=== PATIENT | female | born 1975 | race Caucasian/White ===

== ENCOUNTER 2024-02-15 12:13 | Emergency (ER) | payer OTHER, SELFPAY ==
[2024-02-15 12:18] VITALS: BP 191/106
[2024-02-15 12:55] VITALS: BP 150/95
--- NOTE | 2024-02-15 13:07 | ED.GENMED ---
History of Present Illness
General
Chief Complaint: Swelling
Source: patient
Exam Limitations: none
Time Seen by Provider: 02/15/24 12:55
Travel History
Have you had any contact with someone who has COVID-19?: No
Do you have any symptoms of coronavirus? Fever > 100 degrees, chills, cough, shortness of breath, sore throat, loss of taste or smell, muscle aches, or headache?: No
History of Present Illness
History of Present Illness:
48-year-old female presents primarily with left arm numbness and feels like it slightly swollen. Started earlier today. Still having some slight numbness. No facial numbness some dizziness. Also her watch said she was in atrial fibrillation for
a few minutes yesterday no history of similar episodes
Past History
Past History
ED Past Medical History: Psychiatric (Anxiety, Depression) and Other (ADHD)
ED Past Surgical History: (X 2)
Social History
Tobacco: Smoker
Alcohol: None
Drug: None
Personal: Single
Living: with family
Employment: Employed
Family History
Family History: Hypertension
Review of Systems
Review of Systems
All Other Systems: Not applicable
Constitutional: Denies fever
Respiratory: Reports no symptoms
Cardiac: Denies chest pain or syncope
Phy Exam
Physical Exam
Physical Exam:
GENERAL: Alert and oriented in no apparent distress
EYE: Orbits normal.
NECK: Supple, no thyroid palpable. No carotid bruits
ENT: Pharynx without erythema
CARDIAC: Regular rate and rhythm without any obvious murmurs.
LUNGS: Clear breath sounds,normal
ABDOMEN: Soft, without focal tenderness or distention
NEUROLOGICAL: Alert and oriented , cranial nerves II through XII intact. Speech normal. [id number] normal. No drift. Lower extremity strength normal. Light touch intact.
SKIN: Warm and dry, no rash or lesion, no discoloration, skin intact.
MUSCULOSKELETAL: No edema,no deformity.Good color
PSYCH: Normal and appropriate interaction.
Scores
Heart Failure Risk
Heart Failure Risk Score: Not Applicable
Course
Orders/Labs/Results
Orders:
Orders
02/15/24 12:27
CT Head W/o Iv Contrast Urgent
Comment:
Reason For Exam: left arm numbness and decreased sensation
02/15/24 12:28
ECG [Electrocardiogram (*1)] Urgent
Reason for Study: Fatigue / Weakness
EKG- Treatment ONCE
02/15/24 13:06
Cardiac Monitoring- Treatment ONCE
IV Insert/Care/Rem.- Treatment PRN
Pulse Ox/cont/shift [RESP] Stat
Quantity: 1
02/15/24 13:09
Basic Metabolic Panel Urgent
Complete Blood Count/With Diff Urgent
TSH Reflex To Free T4 Urgent
US Periph Venous UPPER Ext LT Urgent
Comment:
Reason For Exam: Subjective paresthesias/swelling
02/15/24 13:34
MR Brain Without Contrast Urgent
Comment:
Reason For Exam: Left arm paresthesias/transient confusion/possible
OK for patient to be off Cardiac Monitoring for MRI: Yes
Recent pill cam endoscopy?: No
02/15/24 17:35
Lorazepam [Ativan] 2 mg .ROUTE .STK-MED ONE
02/15/24 17:45
Lorazepam [Ativan] 1 mg IV NOW STA
Abnormal Lab Results
02/15/24
13:09
RBC 3.91 L 10^6/uL
(4.20-5.40)
Hgb 11.6 L g/dL
(12.0-16.0)
Hct 33.5 L %
(37.0-47.0)
Sodium 134 L mmol/L
(135-145)
02/15/24 13:09
02/15/24 13:09
Vital Signs
Initial and Last Documented VS:
Initial Vital Signs
Temp Pulse Resp BP Pulse Ox
98.1 F 84 18 191/106 99
02/15/24 12:18 02/15/24 12:18 02/15/24 12:18 02/15/24 12:18 02/15/24 12:18
Last Documented Vital Signs
Temp Pulse Resp BP Pulse Ox
98.1 F 78 19 150/95 98
02/15/24 12:18 02/15/24 17:00 02/15/24 17:00 02/15/24 12:55 02/15/24 17:00
MDM/Problems Addressed
Differential Diagnosis Includes:
Patient's exam is within normal limits. Head CT negative. No clinical findings to support acute stroke alert although some subjective paresthesias to the left arm. With the possibility of atrial fibrillation, embolic event has to at least be
considered. Will discuss with neurology
*Radiology
Radiology exam reviewed: radiology read reviewed (Chiari I malformation. Narrowing C3-C4 with possible mild spinal stenosis)
*Pulse Oximetry
Patient hypoxic: no
*EKG
Interpreted by ED Provider?: Yes
Comparison EKG: no changes
Heart Rate: 78
Rate: normal
Rhythm: sinus
Pickrell: normal axis
Interval: normal interval
QRS Pattern: normal QRS
Ischemia: no ischemia
*Executive Vice President Interpretation
Rate: normal
Interpretation: normal
Heart Rate: 77
Rhythm: sinus
*Critical Care Note
Total Time (30-74mins, 75-104mins- exclusive of procedures): Not Applicable
Data Reviewed
Review of Other/Old Records Reveals: Labs, Records and Testing
Update Note
Update Note:
Patient has remained medically stable. Neurologic exam unremarkable. No acute findings on MRI. This report was reviewed with neurosurgery for follow-up. Ultrasound of the arm negative. No evidence of atrial fibrillation here however does
warrant cardiac follow-up
ED Attending Note
-
Portions of this chart may have been created with voice recognition software.� Occasional wrong word or��sound alike� substitutions may have occurred due to the inherent limitations of voice recognition software.
Discharge Plan
Departure
Patient Disposition: Home (Routine Discharge)
Date of Disposition: 02/15/24
Time of Disposition: 19:31
Patient with high blood pressure during this ER visit?: Yes
Discharge Problem:
Left arm paresthesias, Possible paroxysmal atrial fibrillation, Incidental Chiari malformation, C3-C4 degenerative changes, C3-C4 mild spinal stenosis
Instructions: Paresthesia (DC), BLOOD PRESSURE
Prescriptions:
No Action
dextroamphetamine-amphetamine [Adderall] 10 mg Tablet
10 mg PO BID
escitalopram oxalate [Lexapro] 10 mg Tablet
10 mg PO DAILY
Patient Comments:
02/15/2024, prescribed for patient to take 1.5 tablets (15 mg) daily; however, pt. forgets to take the additional half tablet often.
ibuprofen 200 mg Tablet
400 - 600 mg PO BIDPRN PRN (Reason: mild pain)
aspirin 81 mg Tablet,Chewable
162 mg PO Q4HPRN PRN (Reason: leg pain)
Referrals:
Nico Gibson MD [Active] - Follow up in 5-7 days
Felicitas Valentine MD [Family Provider] -
Ksenia Knight MD [Active] -
Activity Restrictions/Additional Instructions:
Follow-up closely with your primary physician
Call cardiology tomorrow for close follow-up for your possibility of paroxysmal atrial fibrillation
Call and follow-up with neurosurgery based on the MRI report we discussed
Return sooner with any increased numbness weakness gait issues cognitive issues that progress or any other concerning symptoms
Interventions
Interventions:
*Risk Screen - Suicide Last Done: 02/15/24 12:18
*General Assessment Last Done: 02/15/24 12:18
*Neglect/Abuse Screening Last Done: 02/15/24 12:18
*ED COVID-19 Vaccine History Last Done: 02/15/24 13:04
ED- Cardiac Assessment Last Done: 02/15/24 13:03
ED- Pulmonary Assessment Last Done: 02/15/24 13:04
ED-Skin Assessment Last Done: 02/15/24 13:04
Discharge Date and Time
Print Language: HEBREW
[2024-02-15 13:17] LABS: % Basophils 0.3 % (0-2); % Immature Granulocytes 0.3 % (0-0.5); % Lymphocytes 29.8 % (20.5-51.1); % Monocytes 7.3 % (1.7-9.3); % Neutrophils 62.3 % (42.2-75.2); Absolute Lymphocytes 2.1 10^3/uL (1.2-3.4); Absolute Monocytes 0.5 10^3/uL (0.1-0.6); Absolute Neutrophils 4.4 10^3/uL (1.4-6.5); Hematocrit 33.5 % (37.0-47.0); Hemoglobin 11.6 g/dL (12.0-16.0); Mean Corp Hgb Conc. 34.6 g/dL (33.0-37.0); Mean Corpuscular Hgb 29.7 pg (27.0-31.0); Mean Corpuscular Volume 85.7 fL (81.0-99.0); Mean Platelet Volume 9.2 fL (7.4-10.4); Nucleated Red Blood Cells % 0 %; Platelet Count 293 10^3/uL (130-400); Red Blood Cell Count 3.91 10^6/uL (4.20-5.40); Red Cell Dist. Width 13.1 % (11.5-14.5)
[2024-02-15 13:35] LABS: Blood Urea Nitrogen 14 mg/dl (7-17); Calcium 9.5 mg/dl (8.4-10.2); Carbon Dioxide 23 mmol/L (22-30); Chloride 106 mmol/L (98-107); Glucose 93 mg/dl (70-99); Potassium 3.9 mmol/L (3.5-5.1); Sodium 134 mmol/L (135-145); eGFR > 60.00
[2024-02-15 14:11] LABS: TSH Reflex To Free T4 0.67 uIU/ml (0.47-4.68)
[2024-02-15] MEDS: ATIVAN 1 MG IV (18:41)
== END 2024-02-15 19:55 | disposition home or self-care (01) ==
LOC: EMR 12:13
PROVIDERS: EMERGENCY PHYSICIAN Emergency Medicine; FAMILY PHYSICIAN Emergency Medicine
DX: R20.2 Paresthesia of skin (principal); M48.02 Spinal stenosis, cervical region; I48.91 Unspecified atrial fibrillation; F41.8 Other specified anxiety disorders; F90.9 Attention-deficit hyperactivity disorder, unspecified type; F17.200 Nicotine dependence, unspecified, uncomplicated; Z82.49 Family history of ischemic heart disease and other diseases of the circulatory system
CPT/HCPCS: 99284; 96374; 70450; 70551; 80048; 84443; 85025; 93005; 93971

== ENCOUNTER → 2024-04-05 15:00 | Outpatient (REF) | payer OTHER, SELFPAY | LOC: PAVMRI 15:00 | PROVIDERS: ATTENDING PHYSICIAN Family Medicine | DX: R20.0 Anesthesia of skin (principal); R20.2 Paresthesia of skin; M48.02 Spinal stenosis, cervical region; M25.511 Pain in right shoulder | CPT/HCPCS: 72141; 73221 ==

== ENCOUNTER → 2024-05-10 12:21 | Outpatient (REF) | payer OTHER, SELFPAY | LOC: RAD 12:21 | PROVIDERS: ATTENDING PHYSICIAN Internal Medicine Cardiovascular Disease; FAMILY PHYSICIAN Emergency Medicine | DX: R06.2 Wheezing (principal); I10 Essential (primary) hypertension | CPT/HCPCS: 93922; 93925 ==

== ENCOUNTER 2025-03-23 21:31 | Emergency (ER) | payer OTHER, SELFPAY ==
[2025-03-23 21:33] VITALS: BP 172/103
[2025-03-23 22:30] VITALS: BP 160/93
--- NOTE | 2025-03-24 01:58 | ED.GENMED ---
History of Present Illness
General
Chief Complaint: Wound Check/Suture Removal
Source: patient
Exam Limitations: none
Time Seen by Provider: 03/23/25 21:55
Nursing documentation reviewed up to this point in time: agreed with
History of Present Illness
History of Present Illness:
Patient states she had a cyst removed from posterior right ear yesterday. Today she attempted to change the dressing but she couold not remove the cotton placed over wound. Brought self to ED for eval.
Past History
Past History
ED Past Medical History: Psychiatric (Anxiety, Depression) and Other (ADHD)
ED Past Surgical History: (X 2)
Social History
Tobacco: Smoker
Alcohol: None
Drug: None
Personal: Single
Living: with family
Employment: Employed
Family History
Family History: Hypertension
Review of Systems
Review of Systems
Allergies reviewed?: Yes
All Other Systems: ROS reviewed and negative except as documented in HPI and ROS
Constitutional: Reports no symptoms
Musculoskeletal: Reports no symptoms
Skin: Reports other (surgical incision right posterior ear. Unable to remove piece of cotton)
Neurological: Reports no symptoms
Psychiatric: Reports no symptoms
Phy Exam
General Physical Exam
General Presentation: well appearing and no apparent distress
General age: appears stated age
General Skin: warm and dry
General Habitus: normal
General Mental: alert
Musculoskeletal Exam
Musculoskeletal Exam: full ROM
Skin Exam
Skin Exam: normal color, warm/dry, no rash and other (Surgical incision rght posterior ear. Cotton soaked with NSS and was removed by me. 2 sutures are intact. NO evidence of infection.)
Psychiatric Exam
Psychiatric Exam: normal mood/affect
Course
Vital Signs
Initial and Last Documented VS:
Initial Vital Signs
Temp Pulse Resp BP Pulse Ox
98.2 F 94 18 172/103 100
03/23/25 21:33 03/23/25 21:33 03/23/25 21:33 03/23/25 21:33 03/23/25 21:33
Last Documented Vital Signs
Temp Pulse Resp BP Pulse Ox
98.2 F 80 18 160/93 100
03/23/25 21:33 03/23/25 22:30 03/23/25 22:30 03/23/25 22:30 03/23/25 22:30
*Critical Care Note
Total Time (30-74mins, 75-104mins- exclusive of procedures): Not Applicable
ED Attending Note
-
Portions of this chart may have been created with voice recognition software.� Occasional wrong word or��sound alike� substitutions may have occurred due to the inherent limitations of voice recognition software.
Discharge Plan
Departure
Patient Disposition: Home (Routine Discharge)
Date of Disposition: 03/23/25
Time of Disposition: 22:08
Patient with high blood pressure during this ER visit?: No
Condition: Good
Covid-19: Not Applicable
Discharge Problem:
Visit for wound check
Instructions: Stitches and dragan
Prescriptions:
No Action
dextroamphetamine-amphetamine [Adderall] 10 mg Tablet
10 mg PO BID
escitalopram oxalate [Lexapro] 10 mg Tablet
10 mg PO DAILY
Patient Comments:
02/15/2024, prescribed for patient to take 1.5 tablets (15 mg) daily; however, pt. forgets to take the additional half tablet often.
ibuprofen 200 mg Tablet
400 - 600 mg PO BIDPRN PRN (Reason: mild pain)
aspirin 81 mg Tablet,Chewable
162 mg PO Q4HPRN PRN (Reason: leg pain)
Referrals:
Felicitas Valentine MD [Family Provider, Internal Medicine]
Activity Restrictions/Additional Instructions:
Follow up with your surgeon as scheduled.
Interventions
Interventions:
*Risk Screen - Suicide Last Done: 03/23/25 21:33
*General Assessment Last Done: 03/23/25 21:43
*Neglect/Abuse Screening Last Done: 03/23/25 21:33
*ED- Fall Risk Assessment Last Done: 03/23/25 21:43
*ED COVID-19 Vaccine History Last Done: 03/23/25 21:43
*Nursing Disposition Last Done: 03/23/25 22:04
ED-Skin Assessment Last Done: 03/23/25 21:43
Discharge Date and Time
Discharge Date/Time: 03/23/25 22:15
Print Language: MALDIVIAN
== END 2025-03-23 22:15 | disposition home or self-care (01) ==
LOC: EMR 21:31
PROVIDERS: EMERGENCY PHYSICIAN Student in an Organized Health Care Education/Training Program; FAMILY PHYSICIAN Emergency Medicine
DX: Z48.00 Encounter for change or removal of nonsurgical wound dressing (principal); F41.8 Other specified anxiety disorders; F90.9 Attention-deficit hyperactivity disorder, unspecified type; F17.200 Nicotine dependence, unspecified, uncomplicated; Z82.49 Family history of ischemic heart disease and other diseases of the circulatory system
CPT/HCPCS: 99281

== ENCOUNTER 2025-10-04 19:32 | Emergency (ER) | payer OTHER, SELFPAY ==
[2025-10-04 19:39] VITALS: BP 130/109
[2025-10-04 20:23] VITALS: BP 140/80
[2025-10-04] MEDS: TORADOL 30 MG IV (20:57)
[2025-10-04] MEDS: NSS 1000 IV (20:58)
[2025-10-04] MEDS: ZOFRAN 4 MG IV (20:58)
[2025-10-04 20:59] LABS: Hematocrit 38.0 % (37.0-47.0); Hemoglobin 12.8 g/dL (12.0-16.0); Mean Corp Hgb Conc. 33.7 g/dL (33.0-37.0); Mean Corpuscular Volume 87.0 fL (81.0-99.0); Nucleated Red Blood Cells % 0 %; Platelet Count 329 10^3/uL (130-400); Red Cell Dist. Width 13.0 % (11.5-14.5)
[2025-10-04 21:00] VITALS: BP 140/81
--- NOTE | 2025-10-04 21:04 | ED.GENMED ---
History of Present Illness
General
Chief Complaint: Abdominal Symptoms
Source: patient
Time Seen by Provider: 10/04/25 20:30
History of Present Illness
History of Present Illness:
50-year-old female presenting to the ER for evaluation of a relative sudden onset of nausea vomiting and diarrhea that began this afternoon around 230, symptoms persisted and accompanied with abdominal cramping which is what prompted her to come to
the ER. Tactile fever reported. No known sick contacts, recent travel or recent antibiotics. Patient did not attempt any medications prior to arrival.
Past History
Past History
ED Past Medical History: Psychiatric (Anxiety, Depression) and Other (ADHD)
ED Past Surgical History: (X 2)
Social History
Tobacco: Smoker
Alcohol: None
Drug: None
Personal: Single
Living: with family
Employment: Employed
Family History
Family History: Hypertension
Review of Systems
Review of Systems
All Other Systems: ROS reviewed and negative except as documented in HPI and ROS
Phy Exam
Physical Exam
Physical Exam:
GENERAL: Alert , ill-appearing but nontoxic
EYE: clear conjunctiva b/l
HEAD: NCAT
ENT: o/p clr, mmm.
CARDIAC: Regular rate and rhythm .
LUNGS: Clear breath sounds bilaterally, no acute respiratory distress, no wheezes/rales/rhonchi
ABDOMEN: Soft, without focal tenderness, no r/g, no cvat
NEUROLOGICAL: Alert and oriented
SKIN: Warm and dry, skin intact.
MUSCULOSKELETAL: No edema, well perfused.
PSYCH: Normal and appropriate interaction.
Scores
Heart Failure Risk
Heart Failure Risk Score: Not Applicable
Heart Score for Chest Pain Patients
STEMI patient?: Not applicable
Withdrawal Assessment of Alcohol
Withdrawal Assessment Completed?: Not applicable
Sepsis
Sepsis Screening
Sepsis Assessment: Sepsis Ruled Out
Sepsis Screen
Sepsis Screen: Sepsis Ruled Out
Date: 10/04/25
Time: 22:36
Course
Orders/Labs/Results
Orders:
Orders
10/04/25 19:41
Test Result ONCE
10/04/25 20:38
0.9% Sodium Chloride 1000 ml [Nss] 1,000 ml IV BOLUS
Ketorolac [Toradol] 30 mg IV NOW STA
Ondansetron Injectable [Zofran] 4 mg IV NOW STA
10/04/25 20:52
Basic Metabolic Panel Urgent
Complete Blood Count/With Diff Urgent
HCG, Serum Qualitative Screen Urgent
Lipase Urgent
Abnormal Lab Results
10/04/25
20:52
WBC 12.4 H 10^3/uL
(4.8-10.8)
Absolute Neuts (auto) 11.7 H 10^3/uL
(1.4-6.5)
Absolute Lymphs (auto) 0.4 L 10^3/uL
(1.2-3.4)
Neutrophils % 93.9 H %
(42.2-75.2)
Lymphocytes % 3.3 L %
(20.5-51.1)
Glucose 126 H mg/dl
(70-99)
10/04/25 20:52
10/04/25 20:52
Vital Signs
Initial and Last Documented VS:
Initial Vital Signs
Temp Pulse Resp BP Pulse Ox
97.5 F 100 24 130/109 96
10/04/25 19:39 10/04/25 19:39 10/04/25 19:39 10/04/25 19:39 10/04/25 19:39
Last Documented Vital Signs
Temp Pulse Resp BP Pulse Ox
97.9 F 81 17 134/79 97
10/04/25 22:02 10/04/25 22:00 10/04/25 22:00 10/04/25 22:00 10/04/25 22:00
MDM/Problems Addressed
Differential Diagnosis Includes:
Food borne illness
Gastroenteritis
Dehydration
Electrolyte imbalance
Colitis
Less concern for surgical abdomen
MDM/Problems Addressed:
50-year-old female presenting to the ER for evaluation of nausea vomiting and diarrhea with abdominal cramping, relative sudden onset this afternoon. Will treat here with Zofran, Toradol and fluids. Disposition pending
*Pulse Oximetry
SaO2: 96
Oxygen Mode of Delivery: Room air
Patient hypoxic: no
*Critical Care Note
Total Time (30-74mins, 75-104mins- exclusive of procedures): Not Applicable
Patient Management
Escalation/DeEscalation of care consider admission/obs:
Patient reporting significant relief and feels comfortable being discharged home. Prescription for Zofran sent to pharmacy. Aware of return precautions. Stable for discharge.
ED Attending Note
-
Portions of this chart may have been created with voice recognition software.� Occasional wrong word or��sound alike� substitutions may have occurred due to the inherent limitations of voice recognition software.
Discharge Plan
Departure
Patient Disposition: Home (Routine Discharge)
Date of Disposition: 10/04/25
Time of Disposition: 22:19
Patient with high blood pressure during this ER visit?: No
Discharge Problem:
Nausea vomiting and diarrhea
Instructions: Nausea and Vomiting, Adult (DC)
Prescriptions:
New
ondansetron 4 mg tablet,disintegrating
4 mg PO TIDPRN PRN (Reason: nausea/vomiting) Qty: 10 0RF
No Action
dextroamphetamine-amphetamine [Adderall] 10 mg Tablet
10 mg PO BID
escitalopram oxalate [Lexapro] 10 mg Tablet
10 mg PO DAILY
Patient Comments:
02/15/2024, prescribed for patient to take 1.5 tablets (15 mg) daily; however, pt. forgets to take the additional half tablet often.
ibuprofen 200 mg Tablet
400 - 600 mg PO BIDPRN PRN (Reason: mild pain)
aspirin 81 mg Tablet,Chewable
162 mg PO Q4HPRN PRN (Reason: leg pain)
Referrals:
[facility], [Other]
Felicitas Valentine MD [Family Provider, Internal Medicine]
Stand Alone Forms: Return to Work
Interventions
Interventions:
*General Assessment Last Done: 10/04/25 22:03
*Neglect/Abuse Screening Last Done: 10/04/25 19:53
*ED COVID-19 Vaccine History Last Done: 10/04/25 22:03
*ED Influenza Vaccine History Last Done: 10/04/25 22:03
[facility] Risk Assessment Tool Last Done: 10/04/25 22:01
*Risk Screen - Suicide (C-SSRS) Last Done: 10/04/25 19:39
EU-Xepilk-Wjiaobuana Assessment Last Done: 10/04/25 22:03
Discharge Date and Time
Print Language: VENEZUELAN
[2025-10-04 21:15] LABS: Blood Urea Nitrogen 15 mg/dl (7-17); Calcium 9.3 mg/dl (8.4-10.2); Carbon Dioxide 23 mmol/L (22-30); Chloride 106 mmol/L (98-107); Glucose 126 mg/dl (70-99); Lipase 48 U/L (23-300); Sodium 135 mmol/L (135-145); eGFR > 60.00
[2025-10-04 21:27] LABS: HCG, Serum Qualitative Screen Negative
[2025-10-04 22:00] VITALS: BP 134/79
[2025-10-04 22:26] VITALS: BP 117/77
== END 2025-10-04 22:51 | disposition home or self-care (01) ==
LOC: EMR 19:32
PROVIDERS: EMERGENCY PHYSICIAN Student in an Organized Health Care Education/Training Program; FAMILY PHYSICIAN Emergency Medicine
DX: R11.2 Nausea with vomiting, unspecified (principal); R19.7 Diarrhea, unspecified; F41.9 Anxiety disorder, unspecified; F32.A Depression, unspecified; F90.9 Attention-deficit hyperactivity disorder, unspecified type; F17.200 Nicotine dependence, unspecified, uncomplicated
CPT/HCPCS: 99284; 96374; 96375; 96361; 80048; 83690; 84703; 85025

== ENCOUNTER 2025-10-08 10:46 | Emergency (ER) | payer OTHER, SELFPAY ==
[2025-10-08 10:53] VITALS: BP 157/92
--- NOTE | 2025-10-08 11:26 | ED.GENMED ---
History of Present Illness
General
Chief Complaint: DVT/Possible Blood Clot
Source: patient
Exam Limitations: none
Time Seen by Provider: 10/08/25 11:14
Nursing documentation reviewed up to this point in time: agreed with
History of Present Illness
History of Present Illness:
Patient is a 50-year-old healthy female who presents to the emergency department for evaluation of left calf pain. Patient states she woke up this morning and noticed pain in her left Medial proximal calf. She reports significant tenderness when
touching the affected area as well as pain with weightbearing. She denies any history of similar symptoms. No chest pain, shortness of breath, fever. No recent falls or trauma.
Patient was concerned as her family has a significant history of blood clots. She has not had any diagnosed blood clots in the past.
resolved.
No recent travel or recent surgeries. She states she was recently seen in the emergency department on for a suspected viral gastroenteritis which has resolved.
Past History
Past History
ED Past Medical History: Psychiatric (Anxiety, Depression) and Other (ADHD)
ED Past Surgical History: (X 2)
Social History
Tobacco: Smoker
Alcohol: None
Drug: None
Personal: Single
Living: with family
Employment: Employed
Family History
Family History: Hypertension
Review of Systems
Review of Systems
Allergies reviewed?: Yes
All Other Systems: ROS reviewed and negative except as documented in HPI and ROS
Phy Exam
Physical Exam
Physical Exam:
Vitals: Hypertensive, otherwise vital signs stable. Afebrile
General: Patient is well appearing, no acute distress
Skin: Warm and dry, no rashes or lesions
Head: Normocephalic, atraumatic
Throat: Protecting airway
Neck: Normal ROM, no cervical spine tenderness
Cardiac: Regular rate
Pulm: No apparent respiratory distress
Abdomen: Nondistended
Extremities: Focal area of tenderness in the left medial proximal calf with palpable cord. No overlying skin changes including erythema, warmth, or obvious swelling. No bony tenderness of left lower extremity. Negative Homans' sign. 2+ palpable
DP/PT pulse in left lower extremity.
Neuro: Grossly intact
Psychiatric: Normal affect.
Course
Orders/Labs/Results
Orders:
Orders
10/08/25 11:15
US Periph Venous LOWER Ext RT Urgent
Comment:
Reason For Exam: pain, edema
10/08/25 11:23
Acetaminophen [Tylenol] 1,000 mg PO NOW STA
Vital Signs
Initial and Last Documented VS:
Initial Vital Signs
Temp Pulse Resp BP Pulse Ox
98.5 F 98 20 157/92 100
10/08/25 10:53 10/08/25 10:53 10/08/25 10:53 10/08/25 10:53 10/08/25 10:53
Last Documented Vital Signs
Temp Pulse Resp BP Pulse Ox
98.5 F 89 16 136/89 100
10/08/25 10:53 10/08/25 13:12 10/08/25 13:12 10/08/25 13:12 10/08/25 11:31
MDM/Problems Addressed
Differential Diagnosis Includes:
Not limited to: Muscular strain, hematoma, DVT, thrombophlebitis, etc.
MDM/Problems Addressed:
56-year-old female 1 day of pain in right proximal calf. No known injury or trauma. No fevers, chest pain, or shortness of breath. Vitals and physical exam as above. There is an obvious area of focal tenderness in the right proximal medial calf
with palpable cord. No overlying erythema or warmth of skin. No pitting edema of lower extremity. Will give Tylenol and obtain ultrasound to rule out DVT.
Update: Ultrasound shows findings of superficial thrombophlebitis with thrombus and varicose veins branching off great saphenous vein distal thigh and proximal/mid calf. This is at area of tenderness. No evidence of DVT. No overlying infectious
process. Advised compression, elevation, NSAIDs for pain. Recommended repeat ultrasound in 1-2 weeks with PCP to ensure no extension of clot. Otherwise stable for discharge home. Return precautions discussed.
Chronic conditions affecting care:
N/A
Acute Exacerbation and/or Progression of Chronic Illness:
N/A
*Radiology
Radiology exam reviewed: radiology read reviewed
*Pulse Oximetry
SaO2: 100
Oxygen Mode of Delivery: Room air
Patient hypoxic: no
*EKG
Interpreted by ED Provider?: NA
*Food And Beverage Server Interpretation
Rate: Food And Beverage Server- N/A
*Critical Care Note
Total Time (30-74mins, 75-104mins- exclusive of procedures): Not Applicable
ED Attending Note
-
Portions of this chart may have been created with voice recognition software.� Occasional wrong word or��sound alike� substitutions may have occurred due to the inherent limitations of voice recognition software.
Discharge Plan
Departure
Patient Disposition: Home (Routine Discharge)
Date of Disposition: 10/08/25
Time of Disposition: 13:52
Patient with high blood pressure during this ER visit?: Yes
Condition: Good
Discharge Problem:
Superficial thrombophlebitis of right leg
Instructions: Superficial vein phlebitis and thrombosis, BLOOD PRESSURE
Prescriptions:
No Action
dextroamphetamine-amphetamine [Adderall] 10 mg Tablet
10 mg PO BID
escitalopram oxalate [Lexapro] 10 mg Tablet
10 mg PO DAILY
Patient Comments:
02/15/2024, prescribed for patient to take 1.5 tablets (15 mg) daily; however, pt. forgets to take the additional half tablet often.
ibuprofen 200 mg Tablet
400 - 600 mg PO BIDPRN PRN (Reason: mild pain)
aspirin 81 mg Tablet,Chewable
162 mg PO Q4HPRN PRN (Reason: leg pain)
ondansetron 4 mg tablet,disintegrating
4 mg PO TIDPRN PRN (Reason: nausea/vomiting) Qty: 10 0RF
Referrals:
Felicitas Valentine MD [Family Provider, Internal Medicine] - Follow up in 1 week
Activity Restrictions/Additional Instructions:
RETURN TO THE EMERGENCY DEPARTMENT WITH ANY FEVER, WORSENING REDNESS, WARMTH, OR SWELLING OF RIGHT LOWER LEG, INTRACTABLE PAIN, CHEST PAIN OR SHORTNESS OF BREATH, OR ANY OTHER CONCERNS
- As discussed�your ultrasound showed no evidence of a DVT however did note superficial thrombophlebitis in your right calf.
- Please continue to elevate your right lower leg, apply warm compresses and wear compression stockings. You can take Motrin at home for pain
- Please follow-up with your primary care provider in 7-10 days for repeat ultrasound to ensure no worsening of superficial clots or extension to deep venous system.
Monitor your symptoms closely and return to the emergency department with any acute worsening/new symptoms or any other concerns
Interventions
Interventions:
*General Assessment Last Done: 10/08/25 10:53
*Neglect/Abuse Screening Last Done: 10/08/25 10:53
*ED COVID-19 Vaccine History Last Done: 10/08/25 12:08
*ED Influenza Vaccine History Last Done: 10/08/25 12:08
[facility] Fall Risk Assessment Tool Last Done: 10/08/25 12:08
*Risk Screen - Suicide (C-SSRS) Last Done: 10/08/25 10:53
*Nursing Disposition Last Done: 10/08/25 14:05
ED- Cardiac Assessment Last Done: 10/08/25 12:08
ED- Pulmonary Assessment Last Done: 10/08/25 12:08
ED-Peripheral Vascular Assessment Last Done: 10/08/25 12:08
ED-Skin Assessment Last Done: 10/08/25 11:30
Discharge Date and Time
Discharge Date/Time: 10/08/25 14:05
Print Language: [id number]
[2025-10-08] MEDS: TYLENOL 1000 MG PO (11:28)
[2025-10-08 13:12] VITALS: BP 136/89
== END 2025-10-08 14:05 | disposition home or self-care (01) ==
LOC: EMR 10:46
PROVIDERS: EMERGENCY PHYSICIAN Emergency Medicine; FAMILY PHYSICIAN Emergency Medicine
DX: I80.01 Phlebitis and thrombophlebitis of superficial vessels of right lower extremity (principal); F41.8 Other specified anxiety disorders; F90.9 Attention-deficit hyperactivity disorder, unspecified type; F17.200 Nicotine dependence, unspecified, uncomplicated; Z82.49 Family history of ischemic heart disease and other diseases of the circulatory system; Z86.718 Personal history of other venous thrombosis and embolism; Z98.891 History of uterine scar from previous surgery
CPT/HCPCS: 99284; 93971